=== PATIENT | female | born 1955 | race Caucasian/White ===

== ENCOUNTER 2023-11-06 14:05 | Emergency (ER) | payer MEDICARE, SELFPAY ==
[2023-11-06] VITALS (10 sets, daily range): BP systolic 139–169; BP diastolic 64–71; PULSE 62–83; RESP 16–23; TEMP 36.6; O2SAT 95–100; BMI 23.3
[2023-11-06 14:27] LABS: Add Manual Diff / Slide Review NO; Basophils Absolute Auto 100 /uL (0-100); Eosinophils Absolute Auto 200 /uL (0-450); Eosinophils Percent Auto 2.7 % (2-4); Hematocrit 42.4 % (36-46); Hemoglobin 14.4 g/dL (12.0-16.0); Lymphocytes Absolute Auto 2400 /uL (1100-4500); Lymphocytes Percent Auto 34.5 % (25-40); Mean Corpuscular Hemoglobin 32.3 PG (26-34); Monocytes Absolute Auto 600 /uL (0-900); Neutrophils Absolute Auto 3600 /uL (1500-7000); Neutrophils Percent Auto 52.8 % (50-75); Platelet Count 153 X10^3/uL (150-400); Red Blood Cell Count 4.47 X10^6/uL (4.0-5.2); Red Cell Distribution Width 12.6 % (11.6-14.8); White Blood Cell Count 6.9 X10^3/uL (4.5-11.0)
[2023-11-06 14:37] LABS: Alanine Aminotransferase 30 IU/L (<35); Albumin 4.5 g/dL (3.5-5.0); Albumin Globulin Ratio 1.4 (1.0-2.8); Alkaline Phosphatase 66 U/L (38-126); Aspartate Aminotransferase 36 IU/L (14-36); BUN Creatinine Ratio 26.4 (6-22); Bilirubin Total 0.7 mg/dL (0.2-1.3); Blood Urea Nitrogen 14 mg/dL (7-17); Calcium 10.2 mg/dL (8.4-10.2); Carbon Dioxide 29 mmol/L (22-32); Chloride 103 mmol/L (98-107); Estimated Glomerular Filt Rate > 60 mL/min (>60); Globulin 3.2 g/dL (1.7-4.1); Glucose 84 mg/dL (80-110); HEMOLYSIS 47 (0-50); Lipase 194 U/L (23-300); Sodium 138 mmol/L (137-145); Total Protein 7.7 g/dL (6.3-8.2)
--- NOTE | 2023-11-06 14:41 | PC.NURSE ---
Pt came to the emergency dept today because she has been having increasing upper right abd pain since 11/03/2023. Pt states that abd pain is isolated to her upper right quadrant and denies any other sx. Pt describes the pain as a burning and/or stabbing sensation. [employer] intact. A&Ox4
--- NOTE | 2023-11-06 14:44 | DI.CT.S_ITS ---
PROCEDURE: CT ABDOMEN PELVIS W CON INDICATIONS: ruq abd pain TECHNIQUE: After the administration of intravenous contrast, axial sections acquired from the lung bases to the pubic symphysis. Coronal and sagittal reformats were performed. For radiation dose reduction, the following was used: automated exposure control, adjustment of mA and/or kV according to patient size. COMPARISON: None. FINDINGS: Image quality: Diagnostic. Lower Chest: No significant findings. ABDOMEN: Liver: No solid mass. Diffuse fatty infiltration of the liver. Gallbladder: No radiopaque gallstones or wall thickening. Biliary ducts: No biliary dilation. Pancreas: No ductal dilation. Spleen: Size is within normal limits. Adrenal Glands: No adrenal nodules. Kidneys and Ureters: No hydronephrosis. No solid mass. No complex renal cystic lesion which requires follow up. Stomach and Bowel: Normal colonic caliber, without significant wall thickening. Moderate amount of stool throughout the colon. No evidence of appendicitis. Peritoneum: No abnormal intraperitoneal fluid. No free air. Ventral Wall: No hernia. Abdominal Nodes: No retroperitoneal or mesenteric adenopathy by size criteria. Vessels: Aorta and inferior vena cava are normal in size. Scattered atherosclerotic calcifications involving the abdominal and pelvic vasculature. PELVIS: Pelvic Organs: Unremarkable. Bladder: Unremarkable. Pelvic Nodes: No enlarged lymph nodes. Miscellaneous: No inguinal hernias are seen. Bones: No aggressive osseous abnormality. Spine degenerative disc disease and facet arthropathy. IMPRESSION: No acute disease process. Moderate colonic fecal loading. Hepatic steatosis. Dictated by: Pauline Perry MD, PhD on 11/06/2023 at 15:37 Approved by: Pauline Perry MD, PhD on 11/06/2023 at 15:42
[2023-11-06 16:03] LABS: Bacteria Urine None Seen; Culture Indicated Urine Cult Not Indicated; RBC Urine 0-1/HPF (0-5/HPF); Squamous Epithelial Cell Urine 0-1 /HPF (0-5/HPF); WBC Urine None Seen (0-5/HPF)
--- NOTE | 2023-11-06 16:57 | ED.ABDPAIN ---
HPI - Abdominal Pain General Chief Complaint: Abdominal Pain Stated Complaint: severe upper right abd pain Time Seen by Provider: 11/06/23 14:34 Source: patient Mode of arrival: Ambulatory History of Present Illness HPI narrative: 68-year-old female who arrives by private vehicle accompanied by her , contributes to the history. She has had 3 days of sharp burning right upper quadrant pain. It is not exacerbated with eating, she has had some nausea without vomiting. She has not had fevers, she has not had urinary symptoms. One week ago she had a scheduled colonoscopy done for screening. This was done in [place]. She says they saw some diverticular disease, she does not believe that biopsies were taken, the note for the visit is not available. There is remote history of a pelvic laparoscopy for an elevated CA 125. Otherwise she has had no abdominal surgery. Does not have any chronic medical problems and does not report any ongoing prescription medications. Uses alcohol only minimal relief. Other than having recently had a colonoscopy prep she does not note any changes in her bowel habits and is not having urinary symptoms. At the time she is seen, the patient is reporting only minimal to no pain. She has not presently nauseated. Related Data Previous Rx's Medication Instructions Recorded polyethylene glycol 3350 17 17 g PO DAILY #119 grams 11/06/23 gram/dose oral powder (Miralax) Allergies Allergy/AdvReac Type Severity Reaction Status Date / Time erythromycin base Allergy Verified 11/06/23 14:11 Patient History Social History Smoking Status: Never smoker Smoking Status: Never smoker alcohol intake frequency: a few times a week Substance Use Type: does not use Exam Initial Vital Signs Initial Vital Signs: Vital Signs Blood Pressure 169/71 H 11/06/23 14:09 Const General: No acute distress [facility] Head: normocephalic and atraumatic Resp Effort & Inspection: normal respiratory effort and able to speak in complete sentences Auscultation: clear to auscultation bilaterally Cardio Rate: regular rate Rhythm: regular rhythm Heart Sounds: S1 normal, S2 normal and no murmurs GI Inspection: normal to inspection Palpation: soft, No hernia and No tender Back/Spine/Pelvis Other: No CVAT Skin Other: Warm and dry Neuro Other: Alert and oriented moving all 4 extremities spontaneously and equally Course Orders Ordered: ED Orders 11/06/23 14:15 Complete Blood Count AUTO DIFF Stat Comprehensive Metabolic Panel Stat Lipase Stat 11/06/23 14:23 EKG-12 Lead Stat 11/06/23 14:44 CT abdomen pelvis w con Stat 11/06/23 15:36 Urine Microscopic Stat Ondansetron HCl (Ondansetron 4 Mg Odt) 4 mg PO NOW PRN PRN Reason: Nausea And Vomiting Ondansetron HCl (Ondansetron 4 Mg/2 Ml Inj) 4 mg IV NOW PRN PRN Reason: Nausea And Vomiting Vital Signs Vital signs: Vital Signs - 8 hr 11/06/23 14:09 11/06/23 14:11 11/06/23 14:25 Temperature 97.9 F Pulse Rate 83 62 Respiratory Rate 20 Blood Pressure 169/71 H 169/71 H Pulse Oximetry 95 100 Oxygen Delivery Method Room Air 11/06/23 14:26 11/06/23 14:26 11/06/23 14:30 Temperature Pulse Rate 64 62 Respiratory Rate 23 Blood Pressure 139/64 Pulse Oximetry 100 100 Oxygen Delivery Method 11/06/23 14:30 11/06/23 15:00 Temperature Pulse Rate 63 Respiratory Rate 16 Blood Pressure 143/65 H Pulse Oximetry 99 Oxygen Delivery Method MDM - Abdominal Pain Lab Data Lab results narrative: CBC with diff is unremarkable, CMP is unremarkable, lipase is normal, urinalysis unremarkable 11/06/23 14:15 11/06/23 14:15 Labs: Lab Results 11/06/23 11/06/23 Range/Units 14:15 15:36 WBC 6.9 (4.5-11.0) X10^3/uL RBC 4.47 (4.0-5.2) X10^6/uL Hgb 14.4 (12.0-16.0) g/dL Hct 42.4 (36-46) % MCV 95.0 (80-100) fL MCH 32.3 (26-34) PG MCHC 34.0 (30-36) % RDW 12.6 (11.6-14.8) % Plt Count 153 (150-400) X10^3/uL Neut % (Auto) 52.8 (50-75) % Lymph % (Auto) 34.5 (25-40) % Craven % (Auto) 9.0 (3-14) % Eos % (Auto) 2.7 (2-4) % Baso % (Auto) 1.0 (0-2) % Neut # (Auto) 3600 (6401-5322) /uL Lymph # (Auto) 2400 (9223-8504) /uL Craven # (Auto) 600 (0-900) /uL Eos # (Auto) 200 (0-450) /uL Baso # (Auto) 100 (0-100) /uL Sodium 138 (137-145) mmol/L Potassium 4.0 (3.4-5.1) mmol/L Chloride 103 (98-107) mmol/L Carbon Dioxide 29 (22-32) mmol/L BUN 14 (7-17) mg/dL Creatinine 0.53 (0.52-1.04) mg/dL Estimated GFR > 60 (>60) mL/min BUN/Creatinine Ratio 26.4 H (6-22) Glucose 84 (80-110) mg/dL Calcium 10.2 (8.4-10.2) mg/dL Total Bilirubin 0.7 (0.2-1.3) mg/dL AST 36 (14-36) IU/L ALT 30 (<35) IU/L Alkaline Phosphatase 66 (38-126) U/L Total Protein 7.7 (6.3-8.2) g/dL Albumin 4.5 (3.5-5.0) g/dL Globulin 3.2 (1.7-4.1) g/dL Albumin/Globulin Ratio 1.4 (1.0-2.8) Lipase 194 (23-300) U/L Urine RBC 0-1/hpf (0-5/HPF) Urine WBC None seen (0-5/HPF) Ur Squamous Epith Cells 0-1 /hpf (0-5/HPF) Urine Bacteria None seen (None) Ur Culture Indicated? Cult not indicated Imaging Data CT scan - abdomen/pelvis: My Impression: Independent review CT abdomen and pelvis, no cholecystitis, no ureteral stone, no bowel obstruction no evidence of appendicitis. Radiologist's Impression: IMPRESSION: No acute disease process. Moderate colonic fecal loading. Hepatic steatosis. Dictated by: Pauline Perry MD, PhD on 11/06/2023 at 15:37 Approved by: Pauline Perry MD, PhD on 11/06/2023 at 15:42 MDM Narrative Medical decision making narrative: 68-year-old female with no prior surgical history and recent colonoscopy presenting with right upper quadrant abdominal pain. It does not seem to be associated with eating, she has not been vomiting does not have fevers and appears nontoxic. Differential diagnosis includes but is not limited to pneumonia, cholecystitis or biliary colic, ureteral stone, pyelonephritis bowel obstruction or perforation. Workup is reassuring without evidence of a surgical abdominal process or other acute disease. It does not appear that she may be constipated based on CT findings. Therefore I recommended an empiric trial of laxative and follow up with primary care. Discharge Plan Departure Patient Disposition: Home Clinical Impression: Acute constipation Abdominal pain Qualifiers: Abdominal location: right upper quadrant Qualified Code(s): R10.11 - Right upper quadrant pain Activity Restrictions/Additional Instructions: Emergency department evaluation today is reassuring. No emergent condition requiring further workup is identified. I think it is safe to go home, based on imaging there does appear to be some constipation present. I have provided a prescription for MiraLax that you can use daily to help relieve this. 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 Make sure that you are getting adequate fluids. Follow up soon with your primary care provider. If you are having fevers uncontrolled vomiting or increasing pain recheck in the emergency department. Prescriptions: New polyethylene glycol 3350 [Miralax] 17 gram/dose powder 17 g PO DAILY Qty: 119 0RF Rx Instructions: Use daily as instructed until constipation is relieved. Stand Alone Forms: Patient Portal/API
== END 2023-11-06 17:12 | disposition home or self-care (01) ==
PROVIDERS: Emergency Provider Emergency Medicine
DX: K59.00 Constipation, unspecified (principal); R10.11 Right upper quadrant pain
CPT/HCPCS: 36415; 74177; 80053; 81015; 83690; 85025; 93005; 99284; Q9967